=== PATIENT | female | born 1955 | race Caucasian/White ===

== ENCOUNTER → 2018-10-30 | Outpatient (CLI) | payer OTHER ==
[~2018-10-30] MED LIST: AMLO2.5T78 PO; ASC500 PO; ASPI-715 PO; AZIT500T47 PO; BLOOD PRESSURE; CALC500T42 PO; KET10 PO; LIS10 PO; LISI-362 PO; LOR5/325 PO; MULT-820 PO; NEBI10TA4 PO; PHEN120S16 PO
--- NOTE | 2018-10-30 12:07 | RADIOLOGY IMAGING REPORT ---
[place] [facility] [place] NAME: MOOK KELLER : [id number] MR: [id number] V: [id number] EXAM DATE: ORDERING PHYSICIAN: HALEY DELGADO TECHNOLOGIST: Ewelina Odonnell PROCEDURE: BILATERAL DIGITAL SCREENING MAMMOGRAM WITH CAD ASSISTED INTERPRETATION & 3D TOMOSYNTHESIS. REASON FOR STUDY: Screening. FAMILY HISTORY OF BREAST CANCER: None. BREAST PROCEDURES/TREATMENTS: Bilateral breast reduction. COMPARISON: 01/30/17, 07/04/15, 06/23/14, 01/20/13. VIEWS OBTAINED: Bilateral 2D & 3D full field CC & MLO projections. BREAST DENSITY: There are scattered areas of fibroglandular density throughout the breasts. MAMMOGRAM FINDINGS: The parenchymal pattern has remained stable allowing for difference in mammographic technique & patient positioning. IMPRESSION: BIRADS 1: Negative. DIAGNOSTIC CATEGORY 1--NEGATIVE. RECOMMENDATIONS: ROUTINE MAMMOGRAM AND CLINICAL EVALUATION. Dictated by: Reyna Watson M.D. on 10/30/2018 at 10:40 Transcribed by: JUD on 10/30/2018 at 11:09 Approved by: Reyna Watson M.D. on 10/30/2018 at 12:02 [facility]
== END ==
LOC: MAMO 00:47
PROVIDERS: ATTEND Family Medicine
DX: Z12.31 Encounter for screening mammogram for malignant neoplasm of breast (principal)
CPT/HCPCS: 77063; 77067